=== PATIENT | female | born 1940 | race Caucasian/White ===

== ENCOUNTER 2017-01-29 11:26 | Outpatient (CLI) | payer MEDICARE, BC ==
[~2017-01-29] VITALS: Ht 170.2 cm; Wt 102.3 kg
--- NOTE | ~2017-01-29 | HEMODYNAMI ---
PATIENT:GREGORIO MCMULLEN MEDICAL RECORD: [id number] : 36 LOCATION:DMeraCAT ADMISSION DATE: 01/29/17 Generatedon:01/29/201714:41 Patient name: GREGORIO MCMULLEN Patient #: [id number] SSN: DO B: 1940 Date of study: 01/29/2017 Page: Of Hemodynamic Procedure Report Patient Data Patient Demographics Procedure consent was obtained First Name: GREGORIO Gender: Female Last Name: KEMI : 1940 Middle Initial: W Age: 76 year(s) Patient #: [id number] Race: Unknown Additional ID: [id number] Contact details Address: [place] [address] State: [place] City: [place] Zip code: [address] Admission Admission Data Admission Date: 01/29/2017 Admission Time: 11:26 Lab Results Lab Result Date: 01/29/2017 Lab Result Time: 0:00 Biochemistry Name Units Result Min Max BUN mg/dl 18 --(---*)-- 7 18 Creatinine mg/dl 0.9 --(-*--)-- 0.6 1.3 CBC Name Units Result Min Max Hemoglobin g/dl 14.5 --(*---)-- 13.5 17.5 Procedure Procedure Types Cath Procedure Miscellaneous Procedures Moderate Sedation up to 45 minutes Peripheral Cath Diagnostic Procedure Cath Peripheral Ndovj-Szrizhn-Yze-Off Peripheral vascular Intervention Stent Stent-Fem/Popw/plasty Procedure Description Procedure Date Procedure Date: 01/29/2017 Procedure Start Time: 13:31 Procedure End Time: 14:40 Procedure Staff Name Function Clay Denis MD Performing Physician David Witt RT Scrub Hannah Nelson RN Nurse Sam Houston RT Monitor Procedure Data Cath Procedure Fluoroscopy Diagnostic fluoroscopy Total fluoroscopy Time: time: 12.6 min 12.6 min Diagnostic fluoroscopy Total fluoroscopy dose: 482 dose: 482 mGy mGy Contrast Material Contrast Material Type Amount (ml) Isovue 300 159 Entry Location Entry Primary Successful Side Size Upsize Upsize Entry Closure Succes sful Closure Location (Fr) 1 (Fr) 2 (Fr) Remarks Device Remarks Femoral Left 5 Fr 6 Fr 6 Fr Exoseal artery Long Short Estimated blood loss: 10 ml Diagnostic catheters Device Type Used For End Catheter Placement Cordis Tempo 5Fr UF Procedure catheter Procedure Complications No complications Procedure Medications Medication Administration Route Dosage Oxygen NC 2 l/min Heparin Flush Bag added to field 2 bags (1000units/500ml NS) Lidocaine 2% added to field 20 Versed I.V. 1 mg Fentanyl I.V. 50 mcg Versed I.V. 0.5 mg Fentanyl I.V. 25 mcg Versed I.V. 0.5 mg Fentanyl I.V. 25 mcg Heparin Bolus I.V. 8000 units Fentanyl I.V. 25 mcg Fentanyl I.V. 25 mcg Fentanyl I.V. 25 mcg Fentanyl I.V. 25 mcg Versed I.V. 0.5 mg Versed I.V. 0.5 mg Hemodynamics Rest HGB: 14.5 (g/dl) Heart Rate: 70 (bpm) Snapshots Pre Cath Intra NCS Post Cath Vital Signs Time Heart Resp SPO2 NIBP (mmHg) Rhythm Pain Sedation Rate (ipm) (%) Status Level (bpm) 13:19:01 70 14 98 Measuring NSR 0 (11) 10(A) , No pain 13:19:40 69 29 98 199/100(133) NSR 0 (11) 10(A) , No pain 13:24:18 66 16 98 192/90(158) NSR 0 (11) 10(A) , No pain 13:28:53 66 16 97 194/88(140) NSR 0 (11) 9(A) , No pain 13:33:27 71 16 96 192/90(147) NSR 0 (11) 9(A) , No pain 13:38:08 73 16 97 190/81(154) NSR 0 (11) 9(A) , No pain 13:42:42 75 16 95 194/86(148) NSR 0 (11) 9(A) , No pain 13:47:20 74 16 95 195/89(139) NSR 0 (11) 9(A) , No pain 13:51:55 73 16 96 193/89(144) NSR 0 (11) 9(A) , No pain 13:56:31 69 20 98 193/94(157) NSR 0 (11) 9(A) , No pain 14:01:08 75 18 96 191/96(136) NSR 0 (11) 9(A) , No pain 14:05:43 77 16 96 184/91(148) NSR 0 (11) 9(A) , No pain 14:10:17 78 16 96 193/90(146) NSR 0 (11) 9(A) , No pain 14:14:49 79 16 96 199/98(151) NSR 0 (11) 9(A) , No pain 14:19:30 78 16 95 201/91(155) NSR 0 (11) 9(A) , No pain 14:24:04 81 16 95 197/106(159) NSR 0 (11) 9(A) , No pain 14:29:42 86 16 96 172/97(151) NSR 0 (11) 9(A) , No pain 14:35:10 86 16 96 167/85(126) NSR 0 (11) 9(A) , No pain 14:40:32 86 6 92 179/82(145) NSR 0 (11) 9(A) , No pain Medications Time Medication Route Dose Verified Delivered Reason Notes Effectiveness by by 13:20:47 Oxygen NC 2 Clay Hannah Per physician l/min Go Nelson RN 13:20:53 Heparin Flush added 2 Clay Clay used for Bag to bags Go Denis MD procedure (1000units/500ml field NS) 13:21:01 Lidocaine 2% added 20ml Clay Clay used for to vial Go Denis MD procedure field 13:21:07 Versed I.V. 1 mg Clay Hannah for sedation Go Nelson RN 13:21:13 Fentanyl I.V. 50 Clay Hannah for sedation mcg Go Nelson RN 13:25:25 Versed I.V. 0.5 Clay Hannah for sedation mg Go Nelson RN 13:25:27 Fentanyl I.V. 25 Clay Hannah for sedation mcg Go Nelson RN 13:27:22 Versed I.V. 0.5 Clay Hannah for sedation mg Go Nelson RN 13:27:33 Fentanyl I.V. 25 Clay Hannah for sedation mcg Go Nelson RN 13:58:07 Heparin Bolus I.V. 8000 Clay Hannah for dose units Go Nelson RN anticoagulation verified wtih dr denis 14:00:24 Fentanyl I.V. 25 Clay Hannah for sedation mcg Go Nelson RN 14:10:27 Fentanyl I.V. 25 Clay Hannah for sedation mcg Go Nelson RN 14:14:39 Fentanyl I.V. 25 Clay Hannah for sedation mcg Go Nelson RN 14:17:59 Fentanyl I.V. 25 Clay Hannah for sedation mcg Go Nelson RN 14:20:12 Versed I.V. 0.5 Clay Hannah for sedation mg Go Nelson RN 14:25:06 Versed I.V. 0.5 Clay Hannah for sedation mg Go Nelson RN Procedure Log Time Note 12:45:20 Sam Houston RT(R) sent for patient. Start room use. 13:10:18 Diagnostic Cath status Elective 13:10:30 Time tracking: Regular hours 13:10:34 Plan of Care:Hemodynamics will remain stable., Cardiac rhythm will remain stable., Comfort level will be maintained., Respiratory function will remain adequate., Patient/ family verbilizes understanding of procedure., Procedure tolerated without complication., Recovers from procedure without complications.. 13:13:57 Patient received from Pre/Post Procedure Room to [facility] 2 Alert and oriented. Tansferred to table in Supine position. 13:14:02 Warm blankets applied, and ghislaine hugger turned on for patient comfort. 13:14:02 Correct patient and procedure confirmed by team. 13:14:06 Signed procedure consent form obtained from patient. 13:14:48 H&P Date Dictated: 01/23/2017 Within 30 days and on chart., H&P Addendum completed by physician on day of procedure. (MUST COMPLETE FOR ALL OUTPATIENTS). 13:14:50 Pre-procedure instructions explained to patient. 13:14:54 Family in waiting room. 13:14:57 Patient NPO since Midnight. 13:15:03 Is the patient allergic to Iodine/contrast media? No. 13:15:07 Is patient on blood thinner?Yes 13:15:11 Patient diabetic? No. 13:15:15 Snore? Yes 13:15:16 Sleep apnea? No 13:15:18 Deviated septum? No 13:15:19 Opens mouth fully? Yes 13:15:20 Sticks out tongue? Yes 13:15:30 Dentures? Yes in tight 13:15:36 Patient pain scale 0/10 ?. 13:15:46 IV patent on arrival in right hand with 0.9% NaCl at [facility]. 13:16:42 Lab Result : BUN 18 mg/dl 13:16:42 Lab Result : Hemoglobin 14.5 g/dl 13:16:42 Lab Result : Creatinine 0.9 mg/dl 13:16:47 Lab results completed and on chart. 13:16:53 Bilateral groins area was prepped with chlora-prep and draped in sterile fashion 13:16:56 Alarms reviewed by R. N. 13:16:56 Sharps counted by scrub and verified by R.N. 13:16:57 Physician paged 13:16:58 Physician arrived 13:17:08 ECG and BP/O2 sat monitors applied to patient. 13:17:11 Vital chart was started 13:17:13 Baseline sample Acquired. 13:17:17 Rhythm: sinus rhythm 13:17:19 Full Disclosure recording started 13:17:27 --------ALL STOP TIME OUT------ 13:17:28 Final Timeout: patient, procedure, and site verified with staff and physician. All members of the team are in agreement. 13:17:31 Bilateral groins site verified by team. 13:17:35 Sedation plan: IV Moderate Sedation Versed, Fentanyl 13:20:47 Oxygen 2 l/min NC was administered by Hannah Nelson RN; Per physician; 13:20:53 Heparin Flush Bag (1000units/500ml NS) 2 bags added to field was administered by Clay Denis MD; used for procedure; 13:21:01 Lidocaine 2% 20ml vial added to field was administered by Clay Denis MD; used for procedure; 13:21:07 Versed 1 mg I.V. was administered by Hannah Nelson RN; for sedation; 13:21:13 Fentanyl 50 mcg I.V. was administered by Hannah Nelson RN; for sedation; 13:25:24 ACC The patient was administered the following blood thiners within the last 24 hours: ACCPlavix 13:25:25 Versed 0.5 mg I.V. was administered by Hannah Nelson RN; for sedation; 13:25:27 Fentanyl 25 mcg I.V. was administered by Hannah Nelson RN; for sedation; 13:25:51 Use device set Femoral Dx 13:25:53 Tegaderm 4 x 4 opened to sterile field. 13:25:54 Acist Hand Control opened to sterile field. 13:25:55 Acist Manifold opened to sterile field. 13:25:57 Acist Syringe opened to sterile field. 13:25:57 Bag Decanter opened to sterile field. 13:25:57 Medline Cath Pack opened to sterile field. 13:25:58 Terumo 5Fr Henefer Sheath opened to sterile field. 13:25:59 St Ellis 260cm J .035 wire opened to sterile field. 13:27:22 Versed 0.5 mg I.V. was administered by Hannah Nelson RN; for sedation; 13:27:33 Fentanyl 25 mcg I.V. was administered by Hannah Nelson RN; for sedation; 13:31:12 Baseline sample Acquired. 13:31:16 Zero performed for pressure channel P1 13:31:33 Baseline sample Acquired. 13:31:41 Baseline sample Acquired. 13:31:48 Procedure started. 13:31:51 Local anesthetic to left femerol artery with Lidocaine 2% by Clay Denis MD.INITIAL ACCESS ONLY 13:35:53 A 5 Fr sheath was inserted into the Left Femoral artery 13:35:59 A [employer] Tempo 5Fr UF catheter was advanced over the wire and used for Procedure. 13:37:31 Abdominal Aortagram was performed. 13:57:36 Terumo ANGLED SS 260CM glide wire opened to sterile field. 13:57:37 Merit BasixCompak Inflation Kit opened to sterile field. 13:57:37 Terumo TORQUE DEVICE PLASTIC .038 opened to sterile field. 13:57:52 [place] advanced around the horn and down the SFA. 13:58:07 Heparin Bolus 8000 units I.V. was administered by Hannah Nelson RN; for anticoagulation; dose verified wtih dr denis 13:58:13 Terumo 6Fr Henefer Destination Sheath opened to sterile field. 13:58:37 Sheath upsized to a 6 Fr Long. 14:00:11 Glidewire removed. 14:00:21 CSI Regalia wire 300cm opened to sterile field. 14:00:24 Fentanyl 25 mcg I.V. was administered by Hannah Nelson RN; for sedation; 14:01:00 Regalia wire advanced. 14:02:24 Wire advanced across lesion. 14:07:04 Inflation number: 1 A Saber 4.0 x 150 x 150 balloon was prepped and advanced across the Mid Superficial Femoral, Left, then inflated to 8 NOEMY for 2:00 (min:sec). 14:10:27 Fentanyl 25 mcg I.V. was administered by Hannah Nelson RN; for sedation; 14:14:29 Balloon removed over the wire. 14:14:39 Fentanyl 25 mcg I.V. was administered by Hannah Nelson RN; for sedation; 14:17:59 Fentanyl 25 mcg I.V. was administered by Hannah Nelson RN; for sedation; 14:20:12 Versed 0.5 mg I.V. was administered by Hannah Nelson RN; for sedation; 14:22:27 Cordis SMART Flex 5 X 100 X 120 stent was deployed across Mid Superficial Femoral, Left . 14:22:29 Stent catheter was removed intact over wire. 14:25:06 Versed 0.5 mg I.V. was administered by Hannah Nelson RN; for sedation; 14:26:00 Cordis SMART 6 X 80 X 120 stent was deployed across Mid Superficial Femoral, Left . 14:26:02 Stent catheter was removed intact over wire. 14:27:38 Inflation number: 2 A Saber 5.0 X 100 X 150 balloon was prepped and advanced across the Mid Superficial Femoral, Left, then inflated to 8 NOEMY for 0:30 (min:sec). 14:27:51 Multiple inflations made at 8 Atms. 14:29:54 Inflation number: 3 The Saber 5.0 X 100 X 150 balloon was reinflated across the Mid Superficial Femoral, Left, to 10 NOEMY for 0:30 (min:sec). 14:32:24 Terumo 6Fr Henefer Sheath opened to sterile field. 14:32:33 Balloon removed over the wire. 14:32:34 Wire removed. 14:32:43 Cordis 6Fr Exoseal opened to sterile field. 14:33: Sheath upsized to a 6 Fr Short. 14:33:06 Sheath removed intact; hemostasis achieved with Exoseal to the Left Femoral artery. 14:33:26 Procedure ended.(Physican Out) 14:33:43 Contrast amount:Isovue 300 159ml. 14:34:43 Procedure type changed to Cath procedure, Miscellaneous Procedures, Moderate Sedation up to 45 minutes, Peripheral Cath Diagnostic Procedure, Cath Peripheral, Xotri-Nyazvat-Bia-Off, Peripheral vascular Intervention, Stent, Stent-Fem/Popw/plasty 14:34:57 Fluoroscopy time 12.60 minutes. 14:35:00 Fluoroscopy dose: 482 mGy 14:35:00 Flurop Dose total: 482 14:35:01 Sharps counted by scrub and verified by R.N. 14:35:03 Insertion/operative site no bleeding no hematoma. 14:35:08 Post-op/insertion site Left Femoral artery dressed using a 4 x 4 and Tegaderm. 14:35:15 Post Procedure Pulses reassessed and unchanged 14:35:29 Post-procedure physical assessment completed. ASA score P 2 - A patient with mild systemic disease as per Clay Denis MD. 14:35:32 Post procedure rhythm: unchanged. 14:35:35 Estimated blood loss: 10 ml 14:35:37 Post procedure instruction explained to patient.Patient verbalizes understanding. 14:35:37 Patient needs reinforcement of post procedure teaching. 14:40:03 Procedure and supply charges have been captured, reviewed, submitted and are correct. 14:40:06 Procedure Complication : No complications 14:40:08 Vital chart was stopped 14:40:09 See physician's report for complete and final results. 14:40:12 Report given to Pre/Post Procedure Room. 14:40:16 Patient transfered to Pre/Post Procedure Room with Stretcher. 14:40:19 Procedure ended. 14:40:19 Full Disclosure recording stopped 14:40:39 ACC-PCI Only Patient was given prescriptions, or instructed by Clay Denis MD to start/continue the following medications upon discharge: Plavix 14:40:40 End room use (Document Last) Intervention Summary Intervention Notes Time ActionType Lesion and Equipment Action# Pressure Duration Attributes Used 14:07:04 Inflate Mid Saber 4.0 1 8 02:00 balloon Superficial x 150 x Femoral, 150 Left balloon 14:22:27 Deploy self Mid Cordis 1 expanding Superficial SMART stent Femoral, Flex 5 X Left 100 X 120 stent 14:26:00 Deploy self Mid Cordis 1 expanding Superficial SMART 6 X stent Femoral, 80 X 120 Left stent 14:27:38 Inflate Mid Saber 5.0 2 8 00:30 balloon Superficial X 100 X Femoral, 150 Left balloon 14:29:54 Reinflate Mid Saber 5.0 3 10 00:30 balloon Superficial X 100 X Femoral, 150 Left balloon Device Usage Item Name Manufacture Quantity Catalog Hospital Part Current Minima l Lot# / Number Charge Number Stock Stock Serial# Code Tegaderm 4 1 [id number] 824361 [id number] 5 x 4 Acist Hand Acist Medical 1 66956 997949 675549 807187 5 Control Systems Inc Acist Acist Medical 1 00692 469455 510222 257826 5 Manifold Systems Inc Acist Acist Medical 1 99791 310670 476410 630032 20 Syringe Systems Inc Bag Microtek 1 2002S 554068 52844 066771 5 Decanter Medical Inc. Medline Cardinal 1 [id number] 283173 69819 378526 5 Cath Pack Health Terumo 5Fr Terumo 1 DOV140 579896 823818 896956 [address] [facility] Ellis 1 747510 811626 393163 648723 30 260cm J .035 wire Cordis Cardinal 1 [id number] 793684 376166 011470 10 Tempo 5Fr Health UF catheter Terumo Terumo 1 NH4304 060282 013314 225196 5 [address]ED SS 260CM glide wire [facility] 1 UV8988 248232 349322 090269 15 BasixCompak Inflation Kit Terumo [place] 1 TD01 979300 264029 793275 5 TORQUE Scientific DEVICE PLASTIC .038 Terumo 6Fr Terumo 1 RSR01 837140 08516 315553 5 Henefer Destination Sheath CSI [facility] [facility] 1 [id number] 259847 040036 1 wire 300cm systems Saber 4.0 x Cardinal 1 [id number] 692604 616349 5 150 x 150 Health balloon Cordis Cardinal 1 [id number] 658515 661585 0 SMART Flex Health 5 X 100 X 120 stent Cordis Cardinal 1 [id number] 428028 028659 140740 0 SMART 6 X Health 80 X 120 stent Saber 5.0 X Cardinal 1 [id number] 498181 002962 5 100 X 150 Health balloon Terumo 6Fr Terumo 1 [id number] 170130 197653 160643 40 Henefer Sheath Cordis 6Fr Cardinal 1 EX600 011549 443523 569873 10 Gizmo5 Health Signature Audit [facility] Stage Time Signature Unsigned Intra-Procedure 01/29/2017 Sam Houston 2:41:06 PM RT(R) Signatures Monitor : Sam Houston RT Signature : Date : Time : [facility] [address] [place] [address]
[~2017-01-29 11:26] MED LIST: ANTIVERT25 MG PO; ATIVAN0.5 MG PO; B COMPLEX PO; BACTRIM DS TABL1 TAB PO; BAYER CHEWABLE81 MG PO; BRILINTA90 MG PO; CELEXA10 MG PO; CLARITIN 10 MG10 MG PO; FLORANEX / LACT1 TAB PO; FLUTICASONE PRO16 GM NASAL; HUMALOG 30100 UNITS/ SC; IPRAT-ALBUT 0.5-3 ML UPD; LISINOPRIL10 MG PO; LOPRESSOR25 MG PO; MACRODANTIN100 MG PO; MULTIPLE VITAMI1 TA1 PO; NITROSTAT0.4 MG SL; NOVOLOG MIX 70/10 ML SC; NOVOLOG MIX 70/10 ML SQ; PLAVIX75 MG PO; PROBIOTIC; ROCEPHIN 1 GM/D51 G1 IV; STRESS PO; TRANSDERM-SCO1 PATCH TD; TRANSDERM-SCOP1.5 MG TD; ULTRAM50 MG PO; VALIUM5 MG PO; VIBRAMYCIN 100100 MG PO; VITAMIN B COMPL1 TAB PO; ZANTAC150 MG PO; ZINC PO; ZITHROMAX 500M500 MG IV
[2017-01-29 11:56] VITALS: BP 184/76; Ht 170.2 cm; Wt 102.3 kg
[2017-01-29 12:36] LABS: BASOPHILS 0.5 % (0.0-2.0); EOSINOPHILS 2.9 % (0-7); HEMATOCRIT 43.7 % (36.0-48.0); HEMOGLOBIN 14.5 g/dL (12-16); IMMATURE GRANULOCYTES 0.2 % (0-5); LYMPHOCYTES 36.8 % (15-50); MCHC 33.2 g/dL (31.0-37.0); MCV 90.3 fL (80.0-100.0); MEAN PLATELET VOLUME 11.4 fL (7.4-10.4); NEUTROPHILS 48.6 % (40-80); RBC 4.84 10x6/uL (4.00-5.40); RDW 13.3 % (11.5-14.5); WBC 6.3 10x3/uL (4.8-10.8)
[2017-01-29 12:38] LABS: PLATELET COUNT 194 10x3/uL (130-400)
[2017-01-29 12:49] LABS: ANION GAP 11.6 mmol/L (8-16); CALCIUM 9.1 mg/dL (8.5-10.1); CARBON DIOXIDE 28.8 mmol/L (21.0-32.0); CREATININE - SERUM 0.9 mg/dL (0.6-1.3); POTASSIUM - SERUM 4.4 mmol/L (3.5-5.1)
--- NOTE | 2017-01-29 17:46 | NUR ---
1515-AWAKE, REMINDED TO KEEP HEAD ON PILLOW AND LEFT LEG STRAIGHT, LEFT GROIN- CDI, NO HEMATOMA OR BLEEDING NOTED. 1545-NO CHANGES IN LEFT GROIN
--- NOTE | 2017-01-29 19:44 | NUR ---
1910-IV D'C WITH CATH TIP INTACT, UP IN ROOM-LEFT GROIN CDI-NO HEMATOMA OR BLEEDING NOTED, WRITTEN AND VERBAL D'C INSTRUCTIONS GIVEN TO PT AND CAREGIVER, VERBAL UNDERSTANDING NOTED. 1935-D'C VIA WC TO [facility] WITH CAREGIVER. DENIES FURTHUR NEEDS.
--- NOTE | 2017-01-31 14:54 | OP ---
PATIENT NAME: GREGORIO MCMULLEN MEDICAL RECORD: [id number] :38 LOCATION:D.CAT ADMISSION DATE: SURGEON: DANIA QUINTERO M.D. DATE OF OPERATION: 01/29/2017 Catheterization Report REFERRING PHYSICIAN: Jayme Lau DO. PROCEDURES PERFORMED: 1. Aortofemoral runoff. 2. [employer] COMM[employer]ICATIONS SERGEANT and stent of the right superficial artery. 3. [employer] COMM[employer]ICATION[employer] SERGEANT and stenting to the right popliteal artery. DESCRIPTION OF PROCEDURE: A 5-Serbian sheath was inserted in retrograde fashion in the left common femoral artery. Next, UF catheters was advanced to the level left T12. Power injection was performed to visualize the distal aorta. Next, the catheter was pulled down to the level of bifurcation. Right and left lower extremity angiograms were then performed. FINDINGS: Distal aorta is calcified. However, it is widely patent. Each kidney receives a single arterial supply. There is no evidence of renal artery stenosis. The left common iliac artery is large in caliber and widely patent. Left common femoral artery is large in caliber and widely patent. Left superficial artery demonstrates an 80% to 90% stenosis in the mid aspect. The left popliteal artery demonstrates a long 70% stenosis. Below the knee, there appears to be at least 2-vessel runoff, which is diffusely diseased. Right common iliac artery is large in caliber and widely patent. The right common femoral artery is large in caliber and widely patent. Right superficial artery is subtotal in the mid segment. There is a long 99% stenosis seen. At this point, there is a long 80% stenosis in the proximal 1/3 of the right popliteal artery. Below the knee, there appears to be 3-vessel runoff. DESCRIPTION OF INTERVENTION: A 6-Serbian Terumo sheath was then placed in the left common femoral artery. Next, the UF catheter was used to cannulate the bifurcation. A long stiff Glidewire was passed around the bifurcation to the right superficial artery. At this point, the Terumo sheath was advanced around the bifurcation and placed at the origin of the right superficial artery. An 8000 units as use heparin was infused. At this point, a Regalia wire was advanced and used to cross the subtotal stenosis in the distal aspect of the vessel. The wire was then placed into the tibioperoneal trunk. At this point, a 4 mm x 150 mm Saber balloon was advanced and inflations was performed at 10 atmospheres across the right popliteal artery and superficial femoral artery. Injections then revealed worship of flow, but a significant residual stenosis within the right superficial artery and right popliteal arteries. At this point, a 5 mm x 100 mm SMART stent was placed in the distal right popliteal artery and then deployed. Next, a 6 mm x 80 mm SMART stent was placed in the right superficial artery by an overlapping fashion with this stent in the right popliteal artery. This stent was then deployed. Next, both stents were postdilated to 5 mm x 100 mm Saber balloon at 10 atmospheres. Injections revealed brisk flow through the right popliteal and superficial arteries with a 10% residual stenosis within the stented segments. OPERATIVE REPORT [id number] GREGORIO MCMULLEN IMPRESSION: Successful percutaneous transluminal coronary angioplasty and stenting to the right superficial femoral and popliteal arteries. TRANSINT:[id number] Voice Confirmation ID: [id number] DOCUMENT ID: [id number] DANIA QUINTERO M.D. at 1454 CC: [id number] DICTATION DATE: 01/29/17 1442 INFORMATION SYSTEMS ADMINISTRATOR: 01/29/17 2328 DEP CLI 01/29/17 [id number] [place] [address]
== END 2017-01-29 19:35 | disposition home or self-care (01) ==
LOC: D.CATH 11:26
PROVIDERS: Internal Medicine Cardiovascular Disease
DX: I70.223 Atherosclerosis of native arteries of extremities with rest pain, bilateral legs (principal)

== ENCOUNTER 2017-03-26 04:04 | Inpatient (IN) | payer MEDICARE, BC ==
[~2017-03-26] VITALS: Ht 170.2 cm; Wt 94.3 kg
[2017-03-26] VITALS (15 sets, daily range): BP systolic 124–172; BP diastolic 43–66; BMI 32.6
[~2017-03-26 04:04] MED LIST changes: +ANTIVERT12.5 MG PO
[2017-03-26 04:47] LABS: BASOPHILS 0.2 % (0-2); EOSINOPHILS 1.4 % (0-7); HEMATOCRIT 43.7 % (36.0-48.0); HEMOGLOBIN 14.5 g/dL (12-16); IMMATURE GRANULOCYTES 0.2 % (0-5); LYMPHOCYTES 17.5 % (15-50); MCHC 33.2 g/dL (31.0-37.0); MCV 90.3 fL (80.0-100.0); MEAN PLATELET VOLUME 11.2 fL (7.4-10.4); MONOCYTES 7.2 % (2-11); NEUTROPHILS 73.5 % (40-80); PLATELET COUNT 199 10x3/uL (130-400); RBC 4.84 10x6/uL (4.00-5.40); WBC 8.8 10x3/uL (4.8-10.8)
[2017-03-26 04:59] LABS: INR 1.01 (0.85-1.17); PROTIME 13.1 SECONDS (11.6-15.0)
[2017-03-26 05:04] LABS: ALBUMIN 3.5 g/dL (3.4-5.0); ANION GAP 11.4 mmol/L (8-16); BILIRUBIN - TOTAL 0.32 mg/dL (0.2-1.3); CALCIUM 9.3 mg/dL (8.5-10.1); CARBON DIOXIDE 28.3 mmol/L (21.0-32.0); CREATININE - SERUM 1.1 mg/dL (0.6-1.3); MAGNESIUM - SERUM 1.5 mg/dL (1.8-2.4); POTASSIUM - SERUM 3.7 mmol/L (3.5-5.1)
[2017-03-26 06:02] LABS: APPEARANCE HAZY (CLEAR); BILIRUBIN NEGATIVE (NEGATIVE); COLOR YELLOW (YELLOW); GLUCOSE 100 mg/dL (NEGATIVE); KETONE NEGATIVE (NEGATIVE); LEUKOCYTE ESTERASE TRACE (NEGATIVE); NITRITE POSITIVE (NEGATIVE); PROTEIN 1+ mg/dL (NEGATIVE); UROBILINOGEN NORMAL (NORMAL)
[2017-03-26 06:07] LABS: BACTERIA MANY /hpf (NONE SEEN); RED CELLS - URINE OCC /hpf (0-5)
[2017-03-26 06:08] LABS: HYALINE CAST OCC /lpf (NONE SEEN)
[2017-03-26 08:08] LABS: BASOPHILS 0.2 % (0-2); EOSINOPHILS 0.2 % (0-7); HEMATOCRIT 42.4 % (36.0-48.0); HEMOGLOBIN 14.2 g/dL (12-16); IMMATURE GRANULOCYTES 0.2 % (0-5); LYMPHOCYTES 11.3 % (15-50); MCH 30.1 pg (26.0-34.0); MCHC 33.5 g/dL (31.0-37.0); MCV 89.8 fL (80.0-100.0); MEAN PLATELET VOLUME 10.9 fL (7.4-10.4); MONOCYTES 3.8 % (2-11); NEUTROPHILS 84.3 % (40-80); PLATELET COUNT 193 10x3/uL (130-400); RBC 4.72 10x6/uL (4.00-5.40); RDW 13.1 % (11.5-14.5); WBC 8.1 10x3/uL (4.8-10.8)
[2017-03-26] MEDS ORDERED: NOVOLIN 70/30 110 ML SC (09:56)
[2017-03-26] MEDS ORDERED: TRANSDERM-SCOP1.5 MG TD (09:58)
--- NOTE | 2017-03-26 11:09 | NUR ---
PATIENT ARRIVED FROM ER ON STRETCHER. AWAKE AND ALERT. REPORTS NO PAIN AT THIS TIME. ON ROOM AIR. WEARING ADULT BRIEF. HAS BEEN INCONTINENT OF URINE. NO EVIDENCE OF SKIN BREAKDOWN. SORES ON LEFT SECOND AND THIRD TOE. PERIPHERAL IV R-WRIST, SALINE LOCKED NO REDNESS OR SWELLING NOTED. PERIPHERAL IV ON LEFT HAND. CURRENTLY NPO. SCD'S APPLIED. BED IN LOW POSITION, SIDE RAILS X3 UP, CALL LIGHT WITHIN REACH.
--- NOTE | 2017-03-26 12:10 | NUR ---
SPOKE WITH DAUGHTERS SAIDA AND MITA. BOTH GIVEN UPDATE ON PATIENT.
[2017-03-26 12:19] LABS: BASOPHILS 0.1 % (0-2); EOSINOPHILS 0.2 % (0-7); HEMATOCRIT 43.2 % (36.0-48.0); HEMOGLOBIN 14.3 g/dL (12-16); IMMATURE GRANULOCYTES 0.1 % (0-5); LYMPHOCYTES 19.2 % (15-50); MCH 29.6 pg (26.0-34.0); MCHC 33.1 g/dL (31.0-37.0); MCV 89.4 fL (80.0-100.0); MEAN PLATELET VOLUME 11.2 fL (7.4-10.4); MONOCYTES 5.6 % (2-11); NEUTROPHILS 74.8 % (40-80); PLATELET COUNT 203 10x3/uL (130-400); RBC 4.83 10x6/uL (4.00-5.40); RDW 13.1 % (11.5-14.5); WBC 8.4 10x3/uL (4.8-10.8)
--- NOTE | 2017-03-26 14:09 | NUR ---
PT FIRST GLUCOSE READING AFTER RECEIVED WAS 274. PT ORDERED MODERATE SLIDING SCALE DOSING. PT IS NPO. WAS AFRAID TO GIVE ENTIRE DOSE OF 10 UNITS NOT KNOWING HOW PT WOULD RESPOND TO INSULIN. WHEN RECHECKED LATER PT LEVEL WAS 288. WAS THEN GIVEN 10 UNITS. WILL CONTINUE TO MONITOR.
--- NOTE | 2017-03-26 14:22 | NUR ---
DAUGHTER SAIDA AT BEDSIDE AT THIS TIME. PT IS ALERT AND CONVERSANT.
--- NOTE | 2017-03-26 15:15 | NUR ---
RE-CHECKED BLOOD SUGAR. BLOOD SUGAR HAD NO CHANGE FROM 288. WILL CONTINUE TO MOTITOR AND PROVIDE TREATMENT AT 1630 PER ORDERS.
--- NOTE | 2017-03-26 16:19 | NUR ---
CALLED DR TYSON. PT WANTING TO EAT, HAS BEEN NPO. NO EMESIS, NO BOWEL MOVEMENT -NO BLOOD. LAST H&H WAS 14 & 43. VSS. LET HIM KNOW BP SYSTOLIC WAS 150, BUT DOWN FROM 170'S AND 180'S AT ADMISSION. ALSO LET HIM KNOW OF BLOOD GLUCOSE LEVELS AND INSULIN AMOUNTS GIVEN.
--- NOTE | 2017-03-26 19:20 | NUR ---
REC'D PT RESTING IN BED ON ROOM AIR EYES CLOSED, ORIENTED X 3, RIGHT WRIST PIV WITH LR @ 100CC/HR, ABD ROUND, SOFT, BS X 4, PT DENIES NAUSEA OR PAIN, MAEE, PREVIOUS RIGHT GREAT TOE AMPUTATION NOTED, LEFT 2ND AND 3RD TOES WITH BANDAID INTACT TO SMALL SORES, PT DRY AT THIS TIME, BILAT SCD'S INTACT, PPP, SR UP X 2, BED IN LOW POSITION, CALL LIGHT IN REACH.
--- NOTE | 2017-03-26 21:10 | NUR ---
EVENING MEDS GIVEN, NO VISITORS IN AT THIS TIME, ASSISTED PT TO REPOSITION ONTO RIGHT SIDE, DENIES FURTHER NEEDS.
--- NOTE | 2017-03-26 23:20 | NUR ---
REASSESSMENT COMPLETED, PT REPOSITIONED ONTO LEFT SIDE SUPPORTED WITH PILLOWS, NO INCONTINENCE NOTED AT THIS TIME, VSS, WILL CONT TO MONITOR FOR CHANGES.
[2017-03-27] VITALS (13 sets, daily range): BP systolic 113–154; BP diastolic 49–78; Ht 170.2 cm; Wt 94.3 kg
--- NOTE | 2017-03-27 01:00 | NUR ---
NO CHANGES IN STATUS AT THIS TIME
--- NOTE | 2017-03-27 02:25 | NUR ---
PT O2 SAT DECREASED TO 82% WHILE SLEEPING SOUNDLY,PT AWAKENED AND COUGHING AND DEEP BREATHING DONE, O2 SAT 90%, O2 @ 2LITERS APPLIED VIA NC.
[2017-03-27 03:47] LABS: BASOPHILS 0.3 % (0-2); EOSINOPHILS 3.5 % (0-7); HEMATOCRIT 38.4 % (36.0-48.0); HEMOGLOBIN 12.7 g/dL (12-16); LYMPHOCYTES 30.1 % (15-50); MCH 29.8 pg (26.0-34.0); MCHC 33.1 g/dL (31.0-37.0); MCV 90.1 fL (80.0-100.0); MEAN PLATELET VOLUME 11.1 fL (7.4-10.4); MONOCYTES 11.7 % (2-11); NEUTROPHILS 54.4 % (40-80); PLATELET COUNT 205 10x3/uL (130-400); RBC 4.26 10x6/uL (4.00-5.40); RDW 13.3 % (11.5-14.5); WBC 6.9 10x3/uL (4.8-10.8)
[2017-03-27 04:00] LABS: HEMOGLOBIN A1C 8.1 % (4.8-6.0)
[2017-03-27 04:13] LABS: ALBUMIN 2.9 g/dL (3.4-5.0); ANION GAP 9.1 mmol/L (8-16); BILIRUBIN - TOTAL 0.33 mg/dL (0.2-1.3); CALCIUM 8.4 mg/dL (8.5-10.1); CARBON DIOXIDE 30.8 mmol/L (21.0-32.0); CREATININE - SERUM 1.1 mg/dL (0.6-1.3); MAGNESIUM - SERUM 1.8 mg/dL (1.8-2.4); PHOSPHOROUS 2.9 mg/dL (2.5-4.9); POTASSIUM - SERUM 3.9 mmol/L (3.5-5.1); PROTEIN - SERUM 5.7 g/dL (6.4-8.2); THYROID STIMULATING HORMONE 3.07 uIU/mL (0.36-3.74)
--- NOTE | 2017-03-27 05:00 | NUR ---
PARTIAL BATH AND LINEN CHANGE, INCONTINENT OF URINE
--- NOTE | 2017-03-27 06:00 | NUR ---
PLACED ON BEDPAN AT THIS TIME, 200 CC OF UOP
--- NOTE | 2017-03-27 07:58 | NUR ---
PT ALERT, ORIENTED AND CONVERSANT. REPORTS NO PAIN AT THIS TIME. SCD'S IN PLACE. R WRIST PERIPHERAL IV D5LR AT 100ML/HR. NO REDNESS OR SWELLING NOTED AT IV SITE. LUNG SOUNDS CLEAR THROUGH OUT. NO NAUSEA OR VOMITING. PT PULLED UP IN BED. BREAKFAST TRAY SET UP. BED LOW POSITION, CALL LIGHT WITHIN REACH.
--- NOTE | 2017-03-27 09:36 | NUR ---
PT ATE 100 % OF BREAKFAST. PT TRANSFERRED TO CHAIR X 2 ASSIST. TOLERATED WELL. CHAIR LOCKED, LEGS ELEVATED, PERSONAL ITEMS WITHIN REACH, CALL LIGHT WITHIN REACH.
--- NOTE | 2017-03-27 10:00 | NUR ---
PT TRANSFERRED TO BEDSIDE COMODE X 2 ASSIST. 300ML VOID, YELLOW AND CLOUDY.
[2017-03-27] MEDS ORDERED: MACROBID100 MG PO (10:25)
[2017-03-27] MEDS ORDERED: PROTONIX40 MG PO (10:26)
--- NOTE | 2017-03-27 13:01 | NUR ---
REPORT CALLED TO SAIDA ALVARENGA AT [facility]. PT HAS HAD NO EVIDENCE OF BLEEDING, NO VOMITTING, NO DIARRHEA. HAS BEEN INCONTINENT OF URINE AT TIMES. HAS ASKED FOR AND USED BED RIOS SEVERAL TIMES AND HAS BEEN UP TO BEDSIDE TOILET FOR URINATION. PT WEAK, ABLE WITH ASSIST TO STAND, TURN AND PIVOT ONLY. PT HAS HER GLASSES AND DENTURES AND A CHANGE OF CLOTHES THAT DAUGHTER MITA PROVIDED. H&H STABLE, 12 & 38. MOST RECENT BLOOD SUGAR 301 AND WAS COVERED WITH 12 UNITS OF INSULIN. BANDAIDS THAT WERE ON LEFT TOES 2 AND THREE WERE REMOVED FOR VISUALIZATION AND THEN NEW ONES APPLIED; NO INDICATION OF INFECTION OF THE ULCERATIONS. TWO NEW MEDICATIONS ORDERED, MACROBID AND PROTONIX. COPY OF MEDICATION RECORD FAXED TO Zeke MARCOS AT [phone]. [facility] WILL BE SENDING A VAN FOR TRANSPORT. IS TAKING A PT TO [facility] AND ONCE FINISHED WITH APPOINTMENT, WILL CALL WHEN ON WAY TO LAW SECRETARY PATIENT.
--- NOTE | 2017-03-27 13:23 | NUR ---
Is the patient Alert and Oriented? Yes 0 * PCP DR. FLETCHER 0 * Pharmacy [facility] OR THRU THE [facility] 0 * Preadmission Environment Residential Long Term 0 * Facility Name [facility] 0 * ADLs Partial Dependent 0 * Partial ADLs (Assistance needed) Ambulation Bathing Dressing Medication Management Toileting 0 * Equipment Rolling Walker Wheelchair 0 * List name and contact numbers for known caregivers / representatives who currently or will assist patient after discharge: DAUGHTER: MITA OBREGON [phone] 0 * Additional services required to return to the preadmission environment? No 0 * Can the patient safely return to the preadmission environment? Yes 0 * Has this patient been hospitalized within the prior 30 days at any hospital? No PATIENT IS AWAKE AND ALERT. SHE STATES SHE LIVES AT [facility]. SHE STATES HER DAUGHTER, MITA OBREGON, IS THE ONE THAT TAKES CARE OF HER. SHE STATES SHE HAS A WALKER AND WHEELCHAIR THAT SHE USES AT THE [facility]. PATIENT STATES DR. FLETCHER IS HER PCP. SHE GETS HER MEDS FROM [facility] IN [place] OR FROM THE [facility]. PATIENT WILL RETURN TO THE [facility] VIA THE [facility] VAN. HER DAUGHTER IS AWARE PATIENT WILL BE DISCHARGED BACK TO THE [facility] TODAY. NO DISCHARGE NEEDS IDENTIFIED.
--- NOTE | 2017-03-27 15:15 | NUR ---
PIV REMOVED, TIP INTACT. DISCHARGE INSTRUCTIONS REVIEWED WITH PATIENT. PATIENT HAS GLASSES AND DENTURES. DISCHARGE PACKET PROVIDED TO TRANSPORT PERSONNEL FROM [facility].
== END 2017-03-27 15:17 | DRG 377 ==
LOC: D.ER 04:04 → D.CVICU 06:41
PROVIDERS: Emergency Medicine; ADMIT Family Medicine
DX: K92.2 Gastrointestinal hemorrhage, unspecified (principal); G93.49 Other encephalopathy; N39.0 Urinary tract infection, site not specified; I25.10 Atherosclerotic heart disease of native coronary artery without angina pectoris; E11.40 Type 2 diabetes mellitus with diabetic neuropathy, unspecified; E11.65 Type 2 diabetes mellitus with hyperglycemia; Z79.4 Long term (current) use of insulin; I10 Essential (primary) hypertension; I73.9 Peripheral vascular disease, unspecified; F41.9 Anxiety disorder, unspecified; F32.9 Major depressive disorder, single episode, unspecified; R56.9 Unspecified convulsions; Z95.5 Presence of coronary angioplasty implant and graft; Z86.73 Personal history of transient ischemic attack (TIA), and cerebral infarction without residual deficits

== ENCOUNTER 2017-06-30 08:01 | Day surgery (SDC) | payer MEDICARE, BC ==
[~2017-06-30] VITALS: Ht 170.2 cm; Wt 95.3 kg
--- NOTE | ~2017-06-30 | OP ---
PATIENT NAME: GREGORIO CMMULLEN MEDICAL RECORD: [id number] :36 LOCATION:D.OPS ADMISSION DATE: SURGEON: JEREL SERNA MD DATE OF OPERATION: 06/30/2017 PREOPERATIVE DIAGNOSIS: Osteomyelitis of the right third toe. POSTOPERATIVE DIAGNOSIS: Osteomyelitis of the right third toe. PROCEDURE: Removal of right third toe to the MTP joint. SURGEON: Jerel Serna MD. ANESTHESIA: General. INTRAOPERATIVE COMPLICATIONS: None. SUMMARY OF PATHOLOGIC FINDINGS: The patient has a chronic draining wound with a peripherally noted osteomyelitis in the distal and middle phalanx of the toe. OPERATIVE SUMMARY IN DETAIL: After obtaining the appropriate preoperative orthopedic surgery consent as well as anesthetic consultation, evaluation and clearance, the patient was brought to the operating room and placed on the operating table in supine position. After general laryngeal mask was administered, tourniquet was placed about the proximal aspect of the right lower extremity. Right lower extremity was then prepped and draped in routine sterile fashion. The leg was elevated and exsanguinated, tourniquet inflated to 350 mmHg. A fishmouth incision was drawn around the base of the toe. The incision was taken down to the extensor mechanism, flexor mechanism. The toe was essentially disarticulated at the MTP joint, copiously irrigated and then closed with 3-0 Prolene in routine interrupted fashion. Sterile dressings were applied. Tourniquet was deflated. The patient was awakened, taken to recovery in stable condition. All final needle and sponge counts were correct. TRANSINT:[id number] Voice Confirmation ID: [id number] DOCUMENT ID: [id number] JEREL SERNA MD CC: [id number] DICTATION DATE: 06/30/17 1223 DELINQUENCY COUNSELOR: 06/30/17 1836 [facility] 06/30/17 [id number] [place] [address]
[~2017-06-30 08:01] MED LIST changes: +MACROBID100 MG PO; +NOVOLIN 70/30 110 ML SC; +PROTONIX40 MG PO
[2017-06-30 09:09] LABS: ANION GAP 11.6 mmol/L (8-16); CALCIUM 9.2 mg/dL (8.5-10.1); CREATININE - SERUM 1.1 mg/dL (0.6-1.3); POTASSIUM - SERUM 4.6 mmol/L (3.5-5.1)
[2017-06-30 09:30] LABS: HEMATOCRIT 42.4 % (36.0-48.0); HEMOGLOBIN 13.7 g/dL (12-16); MCH 28.8 pg (26.0-34.0); MCHC 32.3 g/dL (31.0-37.0); MCV 89.3 fL (80.0-100.0); MEAN PLATELET VOLUME 10.7 fL (7.4-10.4); RBC 4.75 10x6/uL (4.00-5.40); RDW 13.5 % (11.5-14.5); WBC 8.3 10x3/uL (4.8-10.8)
[2017-06-30] MEDS ORDERED: ACIDOPHILUS LAC1 CAP PO (10:16)
[2017-06-30] MEDS ORDERED: XANAX0.25 MG PO (10:17)
[2017-06-30 10:22] VITALS: BP 157/67; Ht 170.2 cm; Wt 95.3 kg
[2017-06-30] MEDS ORDERED: HYDROCODONE-APA1 TAB PO (12:21)
== END 2017-06-30 14:45 | disposition home or self-care (01) ==
LOC: D.OPS 08:01 → D.PAN 09:45 → D.OPS 09:45 → D.PAN 10:00 → D.OPS 10:00 → D.PAN 11:00 → D.OPS 14:45
PROVIDERS: Anesthesiology
DX: M86.8X7 Other osteomyelitis, ankle and foot (principal); I10 Essential (primary) hypertension; E11.9 Type 2 diabetes mellitus without complications; Z95.5 Presence of coronary angioplasty implant and graft; K21.9 Gastro-esophageal reflux disease without esophagitis; E66.9 Obesity, unspecified; Z68.32 Body mass index [BMI] 32.0-32.9, adult; Z01.812 Encounter for preprocedural laboratory examination

== ENCOUNTER 2018-04-26 12:10 | Inpatient (IN) | payer MEDICARE, BC ==
[~2018-04-26] VITALS: Ht 170.2 cm; Wt 95.1 kg
--- NOTE | ~2018-04-26 | EC ---
PATIENT:GREGORIO MCMULLEN DATE OF SERVICE: 04/26/18 SEX: F MEDICAL RECORD: [id number] DATE OF : 36 LOCATION:D. D.212 AGE OF PATIENT: 77 ADMISSION DATE: 04/27/18 REFERRING PHYSICIAN: INTERPRETING PHYSICIAN: GINA HUITRON MD ECHOCARDIOGRAM REPORT ECHO CHARGES 4 ECHO COMPLETE Date: 04/27 CLINICAL DIAGNOSIS: AFIB HX OF CAD/STENT/AFIB ECHOCARDIOGRAPHIC MEASUREMENTS (adult normal given) AC root (d.<3.7cm) 3.8 cm LV Septum d (<1.2 cm> 1.9 cm Valve Excursion 1.3 cm LV Septum (systole) 2.2 cm Left Atria (s.<4.0cm> 4.0 cm LVPW d(<1.2cm) 1.8 cm RV (d.<2.3cm) 3.5 cm LVPW (sytole) 2.2 cm LV diastole(<5.6CM) 2.5 cm MV E-F(>70mm/sec) cm LV systole 1.2 cm LVOT Diameter 1.4 cm MV exc.(>10mm) 1.9 cm Est.ejection fraction (50-75%) % DOPPLER: LVIT cm/sec A cm/sec E cm/sec LA cm/sec RVSP 19 mmHg LVOT 78 cm/sec AOP1/2T m/s Asc. Ao 120 cm/sec RVOT 83 cm/sec RA cm/sec PA 109 cm/sec AV Gradient Peak 5.74 mmHg AV Mean 3.01 mmHg AV Area 1.5 cm MV Gradient Peak 4.59 mmHg MV Mean 1.98 mmHg MV Area cm COMMENTS: Child Advocate: Good [employer] Software Developer: 2 Dr. Stiles TAPE# PACS Pericardial Effusion N DATE OF SERVICE: 04/27/2018 PROCEDURE: Echocardiogram. FINDINGS: 1. Left ventricular chamber size is within normal limits. Left ventricular systolic function is normal. Overall ejection fraction estimated at 55%. 2. Left ventricular hypertrophy is present, concentric. No evidence of outflow tract hypertrophy, but there is reversal of the mitral inflow pattern suggestive of diastolic dysfunction from this degree of left ventricular hypertrophy. ECHOCARDIOGRAM REPORT [id number] GREGORIO MCMULLEN 3. Left atrium is upper limits of normal at 4.0 cm. Right atrium and right ventricle chamber sizes are mildly dilated. 4. Valvular structures have normal structure and motion. 5. Doppler interrogation reveals mild mitral regurgitation, trace tricuspid regurgitation, no other valvular insufficiency or stenosis and pulmonary systolic pressure is normal estimated at 19 mmHg. 6. No evidence of pericardial effusion or left ventricular thrombus. TRANSINT:[id number] Voice Confirmation ID: [id number] DOCUMENT ID: [id number] GINA HUITRON MD at 1713 CC: [id number] DICTATION DATE: 04/27/18 123 GENERATOR ASSEMBLER: 04/27/18 1235 ADM [address] [place] [id number] [place] [id number]
--- NOTE | ~2018-04-26 | CN ---
PATIENT NAME:GREGORIO MCMULLEN MEDICAL RECORD: [id number] : 36 LOCATION:D. D.2125 ADMIT DATE: 04/27/18 ACCOUNT: [id number] CONSULTING PHYSICIAN: KEO AREVALO MD REFERRING PHYSICIAN: JAN FORD MD DATE OF CONSULTATION: 04/30/2018 CONSULT REQUESTING PHYSICIAN: Gustavo Perez MD REASON FOR CONSULTATION: Possible pneumonia and pulmonary edema. HISTORY OF PRESENT ILLNESS: Ms. Mcmullen is a 77-year-old female who has a history of congestive heart failure, valvular heart disease, came in on the with shortness of breath, some fever. She is coughing with whitish to yellow color sputum production. Denies any chest pain. REVIEW OF SYSTEMS: As in history of present illness. PAST MEDICAL HISTORY: 1. Hypertension. 2. Valvular heart disease. 3. Congestive heart failure. 4. Coronary artery disease. 5. Peripheral vascular disease. 6. Neuropathy. 7. Seizure disorder and vertigo. PAST SURGICAL HISTORY: 1. She has a cardiac catheterization and stent placement. 2. Cholecystectomy. 3. Appendectomy. 4. Hysterectomy. 5. Left nephrectomy. ALLERGIES: SHE IS ALLERGIC TO PENICILLIN, CODEINE, SIMVASTATIN, LEVAQUIN, LORAZEPAM, AND PRAVASTATIN. MEDICATIONS: [facility] is reviewed. PERSONAL AND SOCIAL HISTORY: The patient is a nonsmoker, nondrinker. FAMILY HISTORY: Noncontributory. PHYSICAL EXAMINATION: GENERAL: Now, the patient is lying comfortably in bed, wearing nasal cannula oxygen. She is not in acute distress. VITAL SIGNS: The blood pressure 135/72, pulse is 103, respiration 18, temperature 98.2, SPO2 is 92% on supplemental oxygen. HEENT: Conjunctivae are pink. Sclerae are not icteric. NECK: Supple, no JVD. CHEST: The chest excursion minimal on both sides. There is bilateral crackles. No wheezing. HEART: Rhythm regular, normal sound, no murmur. ABDOMEN: Soft, bowel sounds present. No hepatosplenomegaly. RECTAL: Deferred. CONSULT REPORT [id number] GREGORIO MCMULLEN EXTREMITIES: No cyanosis, no clubbing. There is 1+ pedal edema. CENTRAL NERVOUS SYSTEM: The patient is awake and alert. There are no obvious cranial nerve abnormality. The gait was not tested. IMAGING: Chest radiograph: There are increased interstitial marking. There are possible lower lobe infiltrate. LABORATORY DATA: CBC: The WBC 11.2, hemoglobin 13.3, hematocrit 42, platelet count is 269. Chemistry: Sodium 143, potassium is 4, BUN is 25, creatinine 1.1. IMPRESSION: 1. Acute hypoxic respiratory failure secondary to bilateral lower lobe pneumonia, most likely hospital-acquired pneumonia. 2. Leukocytosis. 3. Pulmonary edema. 4. Atrial fibrillation. 5. Valvular heart disease. 6. Congestive heart failure and possible chronic systolic dysfunction. RECOMMENDATION: 1. Continue meropenem. I will add doxycycline to cover for atypical. 2. Continue Lasix. Cardiac workup per cardiology. 3. Follow up labs and chest radiograph. Dr. Perez, thank you for involving me in the care of Ms. Mcmullen. TRANSINT:[id number] Voice Confirmation ID: [id number] DOCUMENT ID: [id number] KEO AREVALO MD at 1110 CC: [id number] DICTATION DATE: 04/30/181852 JUNIOR STAFF ACCOUNTANT: 04/30/18 193 [place] IN 05/06/18 [facility] [address] [place] [address]
[~2018-04-26 12:10] MED LIST changes: +ACIDOPHILUS LAC1 CAP PO; +HYDROCODONE-APA1 TAB PO; +XANAX0.25 MG PO
[2018-04-26 13:25] LABS: BASOPHILS 0.2 % (0-2); EOSINOPHILS 0.5 % (0-7); HEMATOCRIT 46.4 % (36.0-48.0); HEMOGLOBIN 15.3 g/dL (12-16); IMMATURE GRANULOCYTES 0.1 % (0-5); LYMPHOCYTES 18.9 % (15-50); MCH 27.8 pg (26.0-34.0); MCV 84.2 fL (80.0-100.0); MONOCYTES 17.9 % (2-11); NEUTROPHILS 62.4 % (40-80); PLATELET COUNT 204 10x3/uL (130-400); RBC 5.51 10x6/uL (4.00-5.40); RDW 15.5 % (11.5-14.5); WBC 8.6 10x3/uL (4.8-10.8)
[2018-04-26 13:33] LABS: APTT 25.9 SECONDS (22.8-39.4); INR 1.13 (0.85-1.17); PROTIME 14.1 SECONDS (11.6-15.0)
[2018-04-26 13:36] LABS: ALBUMIN 2.6 g/dL (3.4-5.0); ALKALINE PHOSPHATASE 71 U/L (46-116); ALT (SGPT) 43 U/L (10-68); CALC OSMOLALITY 284 mosm/kg (275-300); CARBON DIOXIDE 31.3 mmol/L (21.0-32.0); CHLORIDE - SERUM 103 mmol/L (98-107); GLUCOSE 156 mg/dL (74-106); POTASSIUM - SERUM 3.3 mmol/L (3.5-5.1); PROTEIN - SERUM 7.1 g/dL (6.4-8.2); SODIUM 138 mmol/L (136-145); UREA NITROGEN 29 mg/dL (7-18); eGFR NON AFRICAN AMERICAN 57 mL/min (90-120)
[2018-04-26 13:53] LABS: CKMB 4.3 U/L (0.0-3.6); CREATINE KINASE 116 UL (21-215); PRO BNP 5210 pg/mL (0-450)
[2018-04-26 14:23] LABS: TROPONIN-I 0.477 ng/mL (0.000-0.060)
[2018-04-26 14:54] VITALS: BP 132/80
[2018-04-26 15:39] LABS: APPEARANCE HAZY (CLEAR); COLOR DK YELLOW (YELLOW)
[2018-04-26 15:51] LABS: BILIRUBIN NEGATIVE (NEGATIVE); GLUCOSE NEGATIVE (NEGATIVE); KETONE NEGATIVE (NEGATIVE); NITRITE NEGATIVE (NEGATIVE); PROTEIN 2+ mg/dL (NEGATIVE); UROBILINOGEN NORMAL (NORMAL)
[2018-04-26 15:56] LABS: RED CELLS - URINE 0-5 /hpf (0-5)
[2018-04-26 15:57] LABS: BACTERIA MANY /hpf (NONE SEEN)
[2018-04-26 16:30] VITALS: BP 125/81
[2018-04-26 17:00] VITALS: BP 141/78
[2018-04-26 19:03] VITALS: BP 127/74
[2018-04-26 19:42] LABS: MAGNESIUM - SERUM 1.8 mg/dL (1.8-2.4); T4 THYROXIN - FREE 1.26 ng/dL (0.76-1.46); THYROID STIMULATING HORMONE 3.4 uIU/mL (0.36-3.74)
[2018-04-27 01:37] VITALS: BP 140/71; BMI 28.2
[2018-04-27 04:30] VITALS: BP 153/62
[2018-04-27 07:20] LABS: BASOPHILS 1.1 % (0-2); EOSINOPHILS 2.5 % (0-7); HEMATOCRIT 42.3 % (36.0-48.0); HEMOGLOBIN 13.9 g/dL (12-16); IMMATURE GRANULOCYTES 0.2 % (0-5); LYMPHOCYTES 31.9 % (15-50); MCH 27.6 pg (26.0-34.0); MCHC 32.9 g/dL (31.0-37.0); MCV 84.1 fL (80.0-100.0); MEAN PLATELET VOLUME 10.5 fL (7.4-10.4); MONOCYTES 16.1 % (2-11); NEUTROPHILS 48.2 % (40-80); RBC 5.03 10x6/uL (4.00-5.40); RDW 15.7 % (11.5-14.5); WBC 9.9 10x3/uL (4.8-10.8)
[2018-04-27 07:24] LABS: ANION GAP 10.7 mmol/L (8-16); CALCIUM 8.7 mg/dL (8.5-10.1); CARBON DIOXIDE 28.8 mmol/L (21.0-32.0); CREATININE - SERUM 1.1 mg/dL (0.6-1.3); POTASSIUM - SERUM 3.5 mmol/L (3.5-5.1)
[2018-04-27 07:31] LABS: PLATELET COUNT 261 10x3/uL (130-400)
[2018-04-27 08:46] VITALS: BP 141/66
[2018-04-27 12:36] VITALS: BP 134/69
[2018-04-27 16:34] VITALS: BP 146/54
[2018-04-27 19:59] VITALS: BP 142/76
[2018-04-28 01:09] VITALS: BP 121/58
[2018-04-28 06:05] VITALS: BP 131/66
[2018-04-28 17:33] VITALS: BP 154/75
[2018-04-28 20:43] VITALS: BP 114/71
[2018-04-29 00:28] VITALS: BP 145/69
[2018-04-29 04:44] VITALS: BP 168/78
[2018-04-29 08:07] VITALS: BP 183/90
[2018-04-29 12:19] VITALS: BP 164/74
[2018-04-29 12:49] VITALS: Ht 170.2 cm; Wt 95.1 kg
[2018-04-29 15:50] VITALS: BP 94/70
[2018-04-29 20:10] VITALS: BP 163/102
[2018-04-30] VITALS (7 sets, daily range): BP systolic 111–140; BP diastolic 58–74
[2018-04-30 06:36] LABS: BASOPHILS 0.2 % (0-2); EOSINOPHILS 2.3 % (0-7); HEMOGLOBIN 13.3 g/dL (12-16); IMMATURE GRANULOCYTES 0.4 % (0-5); LYMPHOCYTES 28.8 % (15-50); MCH 27.3 pg (26.0-34.0); MCHC 31.7 g/dL (31.0-37.0); MCV 86.2 fL (80.0-100.0); MEAN PLATELET VOLUME 10.5 fL (7.4-10.4); MONOCYTES 11.7 % (2-11); NEUTROPHILS 56.6 % (40-80); PLATELET COUNT 269 10x3/uL (130-400); RBC 4.87 10x6/uL (4.00-5.40); RDW 15.8 % (11.5-14.5); WBC 11.2 10x3/uL (4.8-10.8)
[2018-04-30 06:57] LABS: ANION GAP 11.4 mmol/L (8-16); CALCIUM 8.5 mg/dL (8.5-10.1); CARBON DIOXIDE 31.6 mmol/L (21.0-32.0); CREATININE - SERUM 1.1 mg/dL (0.6-1.3)
[2018-05-01 05:14] VITALS: BP 130/79
[2018-05-01 08:01] VITALS: BP 135/75
[2018-05-01 11:32] VITALS: BP 117/72
[2018-05-01 15:38] VITALS: BP 147/73
[2018-05-01 20:33] VITALS: BP 117/63
[2018-05-02 00:46] VITALS: BP 113/73; BP 134/66
[2018-05-02 05:43] VITALS: BP 102/68
[2018-05-02 08:25] VITALS: BP 99/54
[2018-05-02 11:02] VITALS: BP 124/49
[2018-05-02 15:38] LABS: BASOPHILS 0.2 % (0-2); EOSINOPHILS 2.6 % (0-7); HEMATOCRIT 43.2 % (36.0-48.0); HEMOGLOBIN 13.6 g/dL (12-16); IMMATURE GRANULOCYTES 0.4 % (0-5); LYMPHOCYTES 24.3 % (15-50); MCH 27.9 pg (26.0-34.0); MCHC 31.5 g/dL (31.0-37.0); MCV 88.7 fL (80.0-100.0); MEAN PLATELET VOLUME 10.3 fL (7.4-10.4); MONOCYTES 9.2 % (2-11); NEUTROPHILS 63.3 % (40-80); PLATELET COUNT 257 10x3/uL (130-400); RBC 4.87 10x6/uL (4.00-5.40); RDW 16.1 % (11.5-14.5); WBC 12.6 10x3/uL (4.8-10.8)
[2018-05-02 16:01] LABS: ALBUMIN 2.4 g/dL (3.4-5.0); ANION GAP 11.6 mmol/L (8-16); BILIRUBIN - TOTAL 0.41 mg/dL (0.2-1.3); CALCIUM 8.5 mg/dL (8.5-10.1); CARBON DIOXIDE 33.9 mmol/L (21.0-32.0); CREATININE - SERUM 1.4 mg/dL (0.6-1.3); POTASSIUM - SERUM 4.5 mmol/L (3.5-5.1); PROTEIN - SERUM 6.1 g/dL (6.4-8.2)
[2018-05-02 16:13] VITALS: BP 118/51
[2018-05-02 20:00] VITALS: BP 131/62
[2018-05-03] VITALS: BP 182/68
[2018-05-03 04:00] VITALS: BP 150/74
[2018-05-03 06:40] LABS: BASOPHILS 0.3 % (0-2); EOSINOPHILS 5.1 % (0-7); HEMATOCRIT 41.4 % (36.0-48.0); HEMOGLOBIN 13.1 g/dL (12-16); IMMATURE GRANULOCYTES 0.3 % (0-5); LYMPHOCYTES 24.4 % (15-50); MCH 27.8 pg (26.0-34.0); MCHC 31.6 g/dL (31.0-37.0); MCV 87.7 fL (80.0-100.0); MEAN PLATELET VOLUME 10.4 fL (7.4-10.4); MONOCYTES 10.2 % (2-11); NEUTROPHILS 59.7 % (40-80); PLATELET COUNT 259 10x3/uL (130-400); RBC 4.72 10x6/uL (4.00-5.40); RDW 15.7 % (11.5-14.5); WBC 10.9 10x3/uL (4.8-10.8)
[2018-05-03 07:11] LABS: ALBUMIN 2.3 g/dL (3.4-5.0); BILIRUBIN - TOTAL 0.36 mg/dL (0.2-1.3); CALCIUM 8.7 mg/dL (8.5-10.1); CARBON DIOXIDE 34.7 mmol/L (21.0-32.0); CREATININE - SERUM 1.1 mg/dL (0.6-1.3); PROTEIN - SERUM 6.2 g/dL (6.4-8.2)
[2018-05-03 07:12] LABS: POTASSIUM - SERUM 3.7 mmol/L (3.5-5.1)
[2018-05-03 08:00] VITALS: BP 130/60
[2018-05-03 08:45] VITALS: BP 148/83
[2018-05-03 11:12] VITALS: BP 142/73
[2018-05-04] VITALS: BP 113/58
[2018-05-04 04:00] VITALS: BP 139/72
[2018-05-04 06:42] LABS: BASOPHILS 0.3 % (0-2); EOSINOPHILS 5.2 % (0-7); HEMATOCRIT 44.4 % (36.0-48.0); HEMOGLOBIN 13.9 g/dL (12-16); IMMATURE GRANULOCYTES 0.3 % (0-5); LYMPHOCYTES 24.6 % (15-50); MCH 27.8 pg (26.0-34.0); MCHC 31.3 g/dL (31.0-37.0); MCV 88.8 fL (80.0-100.0); MEAN PLATELET VOLUME 10.7 fL (7.4-10.4); MONOCYTES 9.4 % (2-11); NEUTROPHILS 60.2 % (40-80); PLATELET COUNT 269 10x3/uL (130-400); RDW 15.8 % (11.5-14.5); WBC 11.2 10x3/uL (4.8-10.8)
[2018-05-04 07:31] LABS: ALBUMIN 2.4 g/dL (3.4-5.0); ANION GAP 8.9 mmol/L (8-16); BILIRUBIN - TOTAL 0.35 mg/dL (0.2-1.3); CALCIUM 8.9 mg/dL (8.5-10.1); CARBON DIOXIDE 35.9 mmol/L (21.0-32.0); POTASSIUM - SERUM 3.8 mmol/L (3.5-5.1); PROTEIN - SERUM 6.6 g/dL (6.4-8.2)
[2018-05-04 08:10] VITALS: BP 130/69
[2018-05-04 11:31] VITALS: BP 162/69
[2018-05-04 15:57] VITALS: BP 121/46
[2018-05-04 20:00] VITALS: BP 132/49
[2018-05-05 05:35] LABS: BASOPHILS 0.2 % (0-2); EOSINOPHILS 4.9 % (0-7); HEMATOCRIT 42.3 % (36.0-48.0); HEMOGLOBIN 13.2 g/dL (12-16); IMMATURE GRANULOCYTES 0.2 % (0-5); MCH 27.7 pg (26.0-34.0); MCHC 31.2 g/dL (31.0-37.0); MCV 88.7 fL (80.0-100.0); MEAN PLATELET VOLUME 10.7 fL (7.4-10.4); MONOCYTES 10.9 % (2-11); NEUTROPHILS 68.8 % (40-80); PLATELET COUNT 278 10x3/uL (130-400); RBC 4.77 10x6/uL (4.00-5.40); RDW 15.6 % (11.5-14.5); WBC 12.6 10x3/uL (4.8-10.8)
[2018-05-05 06:09] LABS: ALBUMIN 2.5 g/dL (3.4-5.0); ANION GAP 5.5 mmol/L (8-16); BILIRUBIN - TOTAL 0.59 mg/dL (0.2-1.3); CALCIUM 8.8 mg/dL (8.5-10.1); CARBON DIOXIDE 37.9 mmol/L (21.0-32.0); POTASSIUM - SERUM 3.4 mmol/L (3.5-5.1); PROTEIN - SERUM 6.6 g/dL (6.4-8.2)
[2018-05-05 08:32] VITALS: BP 163/55
[2018-05-05 11:31] VITALS: BP 160/61
[2018-05-05 16:54] VITALS: BP 154/53
[2018-05-05 20:45] VITALS: BP 143/37
[2018-05-06 01:02] VITALS: BP 125/72
[2018-05-06 05:56] LABS: BASOPHILS 0.3 % (0-2); EOSINOPHILS 4.1 % (0-7); HEMATOCRIT 40.2 % (36.0-48.0); HEMOGLOBIN 12.7 g/dL (12-16); IMMATURE GRANULOCYTES 0.4 % (0-5); LYMPHOCYTES 20.8 % (15-50); MCHC 31.6 g/dL (31.0-37.0); MCV 88.5 fL (80.0-100.0); MEAN PLATELET VOLUME 11.4 fL (7.4-10.4); MONOCYTES 11.4 % (2-11); PLATELET COUNT 267 10x3/uL (130-400); RBC 4.54 10x6/uL (4.00-5.40); RDW 15.3 % (11.5-14.5); WBC 11.4 10x3/uL (4.8-10.8)
[2018-05-06 06:12] VITALS: BP 153/51
[2018-05-06 06:24] LABS: ALBUMIN 2.3 g/dL (3.4-5.0); ANION GAP 7.5 mmol/L (8-16); BILIRUBIN - TOTAL 0.52 mg/dL (0.2-1.3); CALCIUM 9.1 mg/dL (8.5-10.1); CARBON DIOXIDE 35.7 mmol/L (21.0-32.0); CREATININE - SERUM 1.2 mg/dL (0.6-1.3); POTASSIUM - SERUM 4.2 mmol/L (3.5-5.1); PROTEIN - SERUM 6.5 g/dL (6.4-8.2)
[2018-05-06 08:21] VITALS: BP 160/56
[2018-05-06 11:52] VITALS: BP 146/52
[2018-05-06] MEDS ORDERED: FEXOFENADINE HC60 MG PO (12:30)
[2018-05-06] MEDS ORDERED: XARELTO20 MG PO (12:31)
[2018-05-06] MEDS ORDERED: BETAPACE 80 MG80 MG PO (12:31)
[2018-05-06] MEDS ORDERED: PROTONIX40 MG PO (12:32)
[2018-05-06] MEDS ORDERED: VIBRAMYCIN 100100 MG PO (12:35)
[2018-05-06] MEDS ORDERED: ALBUTEROL2.5 MG/3 M INH (15:20)
[2018-05-06] MEDS ORDERED: MUCINEX600 MG PO (15:20)
== END 2018-05-06 17:11 | DRG 871 ==
LOC: D.ER 12:10 → D.M2 15:52 → D.EDHOLD 15:52 → OBSVTIME 15:53 → D.M2 20:11
PROVIDERS: Family Medicine; Internal Medicine Nephrology
DX: A41.9 Sepsis, unspecified organism (principal); J18.9 Pneumonia, unspecified organism; J96.01 Acute respiratory failure with hypoxia; N39.0 Urinary tract infection, site not specified; N17.9 Acute kidney failure, unspecified; I50.22 Chronic systolic (congestive) heart failure; F03.90 Unspecified dementia, unspecified severity, without behavioral disturbance, psychotic disturbance, mood disturbance, and anxiety; I48.91 Unspecified atrial fibrillation; I25.10 Atherosclerotic heart disease of native coronary artery without angina pectoris; E11.51 Type 2 diabetes mellitus with diabetic peripheral angiopathy without gangrene; Z79.4 Long term (current) use of insulin; E11.65 Type 2 diabetes mellitus with hyperglycemia; E87.6 Hypokalemia; F41.8 Other specified anxiety disorders; I08.1 Rheumatic disorders of both mitral and tricuspid valves; I11.0 Hypertensive heart disease with heart failure; Z95.5 Presence of coronary angioplasty implant and graft; Z86.73 Personal history of transient ischemic attack (TIA), and cerebral infarction without residual deficits; Z66 Do not resuscitate